=== PATIENT | male | born 1945 | race African-American/Black ===

== ENCOUNTER 2017-01-12 09:31 | Inpatient (IN) | payer MEDICARE, OTHER ==
[~2017-01-12] VITALS: Ht 185.4 cm; Wt 127.6 kg
[2017-01-12 09:58] LABS: BASO # 0.1 x10^3/uL (0.0-0.2); BASO % 1 % (0-3); EOS % 4 % (0-3); HEMOGLOBIN 13.5 g/dL (13.0-17.5); LYMPH # 2.5 x10^3/uL (1.0-4.8); LYMPH % 23 % (24-48); MEAN CORPUSCULAR HEMOGLOBIN 25 pg (25-35); MEAN CORPUSCULAR HGB CONC 33 g/dL (31-37); MEAN CORPUSCULAR VOLUME 77 fL (79-100); MONO % 8 % (0-9); NEUT % 64 % (31-73); PLATELET COUNT 263 x10^3/uL (140-400); RED BLOOD COUNT 5.33 x10^6/uL (4.30-5.70); RED CELL DISTRIBUTION WIDTH 15.8 % (11.5-14.5)
[2017-01-12] MEDS ORDERED: IPRATRPIUM/ALBUTEROL 0.5/2.5MG 3 ML NEBU. NEB ONE (10:15)
--- NOTE | 2017-01-12 10:17 | RAD ---
Portable chest, 01/12/2017: History: Shortness of breath Comparison is made to a study from 07/09/2010. The patient is rotated to the right. The heart appears to be within normal limits in size. The pulmonary vascularity is normal. No pulmonary infiltrates are seen. There is no evidence of pleural fluid. Moderate spurring is present in the spine. IMPRESSION: No acute cardiopulmonary abnormality is detected.
[2017-01-12 10:21] LABS: CALCIUM 9.6 mg/dL (8.5-10.1); CREATININE 1.4 mg/dL (0.7-1.3); GFR 49.7; POTASSIUM 3.7 mmol/L (3.5-5.1)
[2017-01-12 10:27] LABS: ALBUMIN 3.6 g/dL (3.4-5.0); ALBUMIN/GLOBULIN RATIO 0.7 (1.0-1.7); TOTAL BILIRUBIN 0.4 mg/dL (0.2-1.0); TOTAL PROTEIN 9.1 g/dL (6.4-8.2)
--- NOTE | 2017-01-12 10:28 | PHYS DOC ---
Past Medical History Past Medical History: CHF, Hypertension Past Surgical History: No Surgical History Additional Information: quit "forty years ago" Alcohol Use: None Drug Use: None Adult General Chief Complaint Chief Complaint: SHORTNESS OF BREATH HPI HPI 71-year-old male presenting to the emergency department today with shortness of breath over the past 2 weeks. He also reports swelling in his legs bilaterally and orthopnea. Location lungs. Duration intermittent. Worse with exertion. Improved with rest. He describes having intermittent chest pressure over the past few weeks as well. Review of systems is negative for nausea vomiting diaphoresis fevers chills cough. All other review of systems is negative unless otherwise noted in history of present illness. Review of Systems Review of Systems SEE ABOVE. Current Medications Current Medications Current Medications Medications (Trade) Dose Ordered Sig/Aleksandra Start Time Stop Time Status Last Admin Dose Admin Albuterol/ Ipratropium (Duoneb) 3 ml 1X ONCE 01/12/17 10:15 01/12/17 10:16 DC 01/12/17 10:29 3 ML Furosemide (Lasix) 40 mg 1X ONCE 01/12/17 10:30 01/12/17 10:31 DC 01/12/17 10:56 40 MG Labetalol HCl (Normodyne) 10 mg 1X ONCE 01/12/17 10:30 01/12/17 10:31 DC Allergies Allergies Allergies Coded Allergies Type Severity Reaction Last Updated Verified lisinopril Allergy Severe swelling 01/12/17 Yes Physical Exam Physical Exam Constitutional: Well developed, well nourished, patient has mild increased work of breathing (nursing note states "obvious resp distress", pt is satting mid 90s on RA without distress on my exam) non-toxic appearance. HENT: Normocephalic, atraumatic, bilateral external ears normal, oropharynx moist, no oral exudates, nose normal. [] Eyes: PERRLA, EOMI, conjunctiva normal, no discharge. Neck: Normal range of motion, no tenderness, supple, no stridor. [] Cardiovascular: Patient has crackles in the lungs bilaterally. Regular rate and rhythm present. Lungs & Thorax: Crackles present. Abdomen: Bowel sounds normal, soft, no tenderness, no masses, no pulsatile masses. [] Skin: Warm, dry, no erythema, no rash. Back: No tenderness, no CVA tenderness. [] Extremities: No tenderness, no cyanosis, no clubbing, ROM intact, 2+ edema present. Neurologic: Alert and oriented X 3, normal motor function, normal sensory function, no focal deficits noted. Psychologic: Affect normal, judgement normal, mood normal. [] Current Patient Data Vital Signs Vital Signs Date Time Temp Pulse Resp B/P Pulse Ox O2 Delivery O2 Flow Rate FiO2 01/12/17 11:00 89 148/75 01/12/17 10:29 94 Room Air 01/12/17 09:38 97.8 32 97.8 Lab Values Laboratory Tests Test 01/12/17 09:42 White Blood Count 11.0x10^3/uL (4.0-11.0) Red Blood Count 5.33x10^6/uL (4.30-5.70) Hemoglobin 13.5g/dL (13.0-17.5) Hematocrit 41.0% (39.0-53.0) Mean Corpuscular Volume 77fL (79-100) L Mean Corpuscular Hemoglobin 25pg (25-35) Mean Corpuscular Hemoglobin Concent 33g/dL (31-37) Red Cell Distribution Width 15.8% (11.5-14.5) H Platelet Count 263x10^3/uL (140-400) Neutrophils (%) (Auto) 64% (31-73) Lymphocytes (%) (Auto) 23% (24-48) L Monocytes (%) (Auto) 8% (0-9) Eosinophils (%) (Auto) 4% (0-3) H Basophils (%) (Auto) 1% (0-3) Neutrophils # (Auto) 7.0x10^3uL (1.8-7.7) Lymphocytes # (Auto) 2.5x10^3/uL (1.0-4.8) Monocytes # (Auto) 0.9x10^3/uL (0.0-1.1) Eosinophils # (Auto) 0.4x10^3/uL (0.0-0.7) Basophils # (Auto) 0.1x10^3/uL (0.0-0.2) Sodium Level 142mmol/L (136-145) Potassium Level 3.7mmol/L (3.5-5.1) Chloride Level 103mmol/L (98-107) Carbon Dioxide Level 25mmol/L (21-32) Anion Gap 14 (6-14) Blood Urea Nitrogen 22mg/dL (8-26) Creatinine 1.4mg/dL (0.7-1.3) H Estimated GFR (Cockcroft-Gault) 49.7 BUN/Creatinine Ratio 16 (6-20) Glucose Level 197mg/dL (70-99) H Lactic Acid Level 3.8mmol/L (0.4-2.0) H Calcium Level 9.6mg/dL (8.5-10.1) Total Bilirubin 0.4mg/dL (0.2-1.0) Aspartate Amino Transferase (AST) 51U/L (15-37) H Alanine Aminotransferase (ALT) 45U/L (16-63) Alkaline Phosphatase 120U/L (46-116) H Troponin I Quantitative 0.033ng/mL (0.000-0.055) YC-Bpg-E-Type Natriuretic Peptide 2219pg/mL (0-124) H Total Protein 9.1g/dL (6.4-8.2) H Albumin 3.6g/dL (3.4-5.0) Albumin/Globulin Ratio 0.7 (1.0-1.7) L Lipase 238U/L (73-393) Laboratory Tests 01/12/17 09:42 Laboratory Tests 01/12/17 09:42 EKG EKG EKG shows sinus rhythm with a regular rate. [place] is leftward. Intervals show mildly prolonged QRS. ST segments show appropriate repolarization. [] Radiology/Procedures Radiology/Procedures [] Course & Med Decision Making Course & Med Decision Making Pertinent Labs and Imaging studies reviewed. (See chart for details) [] 71-year-old male presenting to the emergency department today with worsening shortness of breath over the past 2 weeks. Patient is tachycardic and tachypneic saturating in the mid 90s on room air with hypertension present. Pertinent physical exam findings show crackles with edema on the legs. Patient appears volume overloaded. Lasix given in the emergency department along with small dose of labetalol for his hypertension. Physical exam suggestive of CHF exacerbation. Chest x-ray read as similar to previous however on my review appears to have mild pulmonary edema. Blood work obtained which showed elevation in proBNP. The patient was subsequently admitted to our hospital for further evaluation workup and care. Cardiology consultation placed. Dragon Disclaimer Dragon Disclaimer This electronic medical record was generated, in whole or in part, using a voice recognition dictation system. Departure Departure Impression: Primary Impression: Shortness of breath Disposition: ADMITTED INPATIENT Admitting Physician: Fatoumata Davis Condition: IMPROVED Referrals: FATOUMATA DAVIS MD (PCP) PAO AREVALO MD Jan 12, 2017 10:28
[2017-01-12] MEDS: IPRATRPIUM/ALBUTEROL 0.5/2.5MG 3 ML NEBU. NEB SCH ×3 (10:29→19:32)
[2017-01-12] MEDS ORDERED: FUROSEMIDE 40 MG/4 ML VIAL IVP ONE (10:30)
[2017-01-12] MEDS ORDERED: LABETALOL 20 MG/4 ML DISP.SYRIN. IVP ONE (10:30)
--- NOTE | 2017-01-12 10:49 | EKG ---
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 MISSING LEAD V4. PREMATURE VENTRICULAR CONTRACTION. Electronically Signed On 01-13-2017 21:15:29 CDT by Debra Mistry
[2017-01-12] MEDS ORDERED: ONDANSETRON PF 4 MG/2 ML VIAL. IV PRN (11:15)
[2017-01-12] MEDS ORDERED: MORPHINE SULFATE 2 MG/ML DISP.SYRIN. IV PRN (11:15)
[2017-01-12 12:00] VITALS: BP 154/98
--- NOTE | 2017-01-12 12:36 | ACF ---
Admission Forms Criteria TELEMETRY CARE Telemetry Admission Guidelines (Place 'X' for any and all applicable criteria): Admission to telemetry [A] may be indicated for ANY ONE of the following(1)(2)(3 )(4)(5): [X]I. Cardiac disease, including ANY ONE of the following (9)(10)(11)(12)(13 ): [ ]a) Postacute UT [ ]b) Low-risk patients with ST-segment elevation UT who have undergone successful percutaneous coronary intervention [ ]c) Unstable angina [ ]d) Suspected UT (until it is ruled out) [ ]e) Post cardiac surgery (first 48 to 72 hours unless complications occur) [X]f) Acute arrhythmias (including significant tachycardia or bradycardia) [B] [ ]g) Firing of an implantable cardioverter defibrillator [C] [ ]h) Suspected pacemaker or implantable cardioverter defibrillator malfunction (10) [ ]i) New administration or adjustment of an antiarrhythmic drug [D ] [ ]j) Child admitted for acute congestive heart failure [ ]j) Long QT syndrome [ ]k) Advanced heart block (eg, second-degree Mobitz type II, third- degree heart block) [ ]l) Acute myocarditis or pericarditis [ ]m) Short-term (ambulatory or inpatient) monitoring after a cardiac procedure as indicated by ANY ONE of the following [E]: [ ]i) Electrophysiologic studies [ ]ii) Percutaneous coronary intervention with stent placement [ ]iii) Pacemaker placement with cardiac conduction defect [ ]iv) Implantable cardiac defibrillator placement [ ]II. Drug overdose or poisoning with substance that causes arrhythmias or QT prolongation (eg, phenothiazines, sympathomimetic agents, cyclic antidepressants, digitalis, antiarrhythmic drugs)(15) [ ]III. Short-term (ambulatory or inpatient) monitoring after therapeutic or diagnostic procedure requiring conscious sedation or anesthesia (eg, endoscopy, elective cardioversion) [ ]IV. Acute cerebrovascular even[F](18) [ ]V. Massive blood transfusion (eg, at least 10 units of packed red blood cells in 24 hours) [ ]. Variceal bleeding after endoscopy, sclerotherapy, or IV vasopressin [ ]VII. Uncorrected electrolyte abnormalities associated with an increased risk of dangerous arrhythmia [G]; examples include [ ]a) Hyperkalemia with attributable ECG changes [ ]b) Potassium greater than 6.5 mmol/L (mEq/L) in a patient without history of chronic renal disease [ ]c) Prolonged QT attributed to hypokalemia, hypomagnesemia, or hypocalcemia [ ]VIII.Unexplained syncope or other neurologic event suspected of being due to arrhythmia due to a finding that increases risk; examples include(19)(20)(21): [ ]a) High-risk ECG findings (eg, bifascicular block, bradycardia, abnormal QT interval, ventricular pre- excitation) [ ]b) History of previous syncope due to arrhythmia [ ]c) Abnormal ventricular function (eg, reduced ejection fraction ) [ ]d) Exertional or supine syncope [ ]e) Concerning syncope characteristics (eg, sudden loss of consciousness without prodrome) [ ]f) Family history of sudden [ ]g) Use of arrhythmogenic medication [ ]h) Suspected cardiac ischemia [ ]i) Known channelopathy (eg, long QT syndrome, Brugada syndrome, or catecholaminergic paroxysmal ventricular tachycardia) [ ]j) Known structural heart disease (eg, hypertrophic cardiomyopathy , severe valvular disease) [ ]k) Palpitations preceding syncope The original [employer] content created by [employer] has been revised. The portions of the content which have been revised are identified through the use of italic text or in bold, and [employer] has neither reviewed nor approved the modified material. All other unmodified content is copyright [employer]. Please see references footnoted in the original [employer] edition 2016 Admission Criteria Met?: Yes JOSE ALFREDO BLOCK Jan 12, 2017 12:36
[2017-01-12 15:00] VITALS: BP 145/87
[2017-01-12] MEDS ORDERED: FUROSEMIDE 20 MG/2 ML VIAL IVP SCH (15:00)
[2017-01-12] MEDS ORDERED: FURO-68 PO (15:36)
[2017-01-12] MEDS ORDERED: AMLO10TA2 PO (15:36)
[2017-01-12] MEDS ORDERED: INSU100I17 SQ (15:36)
[2017-01-12] MEDS ORDERED: POTASSIUM CHLORIDE 20 MEQ TABLET.ER. PO ONE (15:45)
[2017-01-12] MEDS ORDERED: DEXTROSE 50% 25 GM / 50ML DISP.SYRIN. IV PRN (15:45)
--- NOTE | 2017-01-12 16:14 | PDOC2 ---
BERTMANAV BETHEA Lillian [employer] 01/12/17 1614: CARDIAC CONSULT DATE OF CONSULT Date of Consult DATE: 01/12/17 TIME: 15:55 REASON FOR CONSULT Reason for Consult: CHF REFERRING PHYSICIAN Referring Physician: Dr. Andrew Mullins SOURCE Source: Chart review, Patient (and ) HISTORY OF PRESENT ILLNESS HISTORY OF PRESENT ILLNESS 71 year old male admitted through ER with at least 2 week history of progressive dyspnea and LE edema. Has scales but does not weigh himself so weight gain unknown. Report last episode of CHF may have been 7 years ago; usually follow with Dr. Sol; no recent studies. Denies associated chest pain or dizziness but with PND. BP 198/91 POA and denies missed medications. Symptoms improved with 40 mg IV furosemide in ER. BP treated with IV labetolol. Reason for Visit: CHF PAST MEDICAL HISTORY Cardiovascular: CHF, HTN Endocrine: Diabetes PAST SURGICAL HISTORY Past Surgical History: No pertinent history FAMILY HISTORY Family History: Heart Disease (father and sister; sister @ age 74) SOCIAL HISTORY Smoke: No ALCOHOL: none Drugs: None Lives: with Family CURRENT MEDICATIONS CURRENT MEDICATIONS Current Medications Medications (Trade) Dose Ordered Sig/Aleksandra Route PRN Reason Start Time Stop Time Status Last Admin Dose Admin Albuterol/ Ipratropium (Duoneb) 3 ml 1X ONCE NEB 01/12/17 10:15 01/12/17 10:16 DC 01/12/17 10:29 Furosemide (Lasix) 40 mg 1X ONCE IVP 01/12/17 10:30 01/12/17 10:31 DC 01/12/17 10:56 Albuterol/ Ipratropium (Duoneb) 3 ml RTQID NEB 01/12/17 12:00 01/13/17 11:59 01/12/17 15:01 ALLERGIES ALLERGIES: Coded Allergies: lisinopril (Verified Allergy, Severe, swelling, 01/12/17) ROS Review of System 14 point review with pertinent positives in HPI PHYSICAL EXAM General: Alert, Oriented X3, Cooperative HEENT: Atraumatic, PERRLA Lungs: Other (faint scattered basilar crackles posteriorly) Heart: Regular rate, Normal S1, Normal S2, No murmurs, Other (no carotid bruits ) Abdomen: Normal bowel sounds, Soft Extremities: Normal pulses, Other (2-3+ LE edema) Skin: No rashes Neuro: Normal speech Psych/Mental Status: Mental status NL, Mood NL MUSCULOSKELETAL: No deformity VITALS VITALS Vital Signs Date Time Temp Pulse Resp B/P Pulse Ox O2 Delivery O2 Flow Rate FiO2 01/12/17 15:38 Room Air 01/12/17 15:00 97.8 96 20 145/87 94 97.8 LABS Lab: Laboratory Tests Test 01/12/17 09:42 White Blood Count 11.0x10^3/uL (4.0-11.0) Red Blood Count 5.33x10^6/uL (4.30-5.70) Hemoglobin 13.5g/dL (13.0-17.5) Hematocrit 41.0% (39.0-53.0) Mean Corpuscular Volume 77fL (79-100) Mean Corpuscular Hemoglobin 25pg (25-35) Mean Corpuscular Hemoglobin Concent 33g/dL (31-37) Red Cell Distribution Width 15.8% (11.5-14.5) Platelet Count 263x10^3/uL (140-400) Neutrophils (%) (Auto) 64% (31-73) Lymphocytes (%) (Auto) 23% (24-48) Monocytes (%) (Auto) 8% (0-9) Eosinophils (%) (Auto) 4% (0-3) Basophils (%) (Auto) 1% (0-3) Neutrophils # (Auto) 7.0x10^3uL (1.8-7.7) Lymphocytes # (Auto) 2.5x10^3/uL (1.0-4.8) Monocytes # (Auto) 0.9x10^3/uL (0.0-1.1) Eosinophils # (Auto) 0.4x10^3/uL (0.0-0.7) Basophils # (Auto) 0.1x10^3/uL (0.0-0.2) Sodium Level 142mmol/L (136-145) Potassium Level 3.7mmol/L (3.5-5.1) Chloride Level 103mmol/L (98-107) Carbon Dioxide Level 25mmol/L (21-32) Anion Gap 14 (6-14) Blood Urea Nitrogen 22mg/dL (8-26) Creatinine 1.4mg/dL (0.7-1.3) Estimated GFR (Cockcroft-Gault) 49.7 BUN/Creatinine Ratio 16 (6-20) Glucose Level 197mg/dL (70-99) Lactic Acid Level 3.8mmol/L (0.4-2.0) Calcium Level 9.6mg/dL (8.5-10.1) Total Bilirubin 0.4mg/dL (0.2-1.0) Aspartate Amino Transf (AST/SGOT) 51U/L (15-37) Alanine Aminotransferase (ALT/SGPT) 45U/L (16-63) Alkaline Phosphatase 120U/L (46-116) Troponin I Quantitative 0.033ng/mL (0.000-0.055) FL-Lwu-G-Type Natriuretic Peptide 2219pg/mL (0-124) Total Protein 9.1g/dL (6.4-8.2) Albumin 3.6g/dL (3.4-5.0) Albumin/Globulin Ratio 0.7 (1.0-1.7) Lipase 238U/L (73-393) Thyroid Stimulating Hormone (TSH) 1.290uIU/mL (0.358-3.74) IMAGES IMAGES CXR: Comparison is made to a study from 07/09/2010. The patient is rotated to the right. The heart appears to be within normal limits in size. The pulmonary vascularity is normal. No pulmonary infiltrates are seen. There is no evidence of pleural fluid. Moderate spurring is present in the spine. IMPRESSION: No acute cardiopulmonary abnormality is detected. EKG EKG SR with LVH ASSESSMENT/PLAN ASSESSMENT/PLAN 1. acute CHF, presumed diastolic NT-proBNP 2219 significant improvement in symptoms after IV furosemide - would repeat IV X 1 in a.m. and then convert to oral meds echo to evaluate LV function strict I & O; daily weight; sodium restriction in diet and fluid restriction records from Dr. Wood consider stopping CCB as this may be contributing to LE edema 2. malignant HTN control with meds 3. elevated lactic acid level ?; not treated in ER check UA with reflex to C & S 4. DM, II per primary service 5. morbid obesity Problems: ÓSCAR ZULUAGA MD 01/12/172123: CARDIAC CONSULT ALLERGIES ALLERGIES: Coded Allergies: lisinopril (Verified Allergy, Severe, swelling, 01/12/17) ASSESSMENT/PLAN ASSESSMENT/PLAN Pt. seen and examined. Agree with above CANDY DIPPER note. Mr. Romano is a 71 y.o man presenting with acute on chronic heart failure symptoms. On exam he has mild lower ext edema. heart tones regular echo with severe LV dysfunction. discussed r/b/a to cath. Will proceed tomorrow as pt. agreeable. Thanks for consult. Further recs pending cath. Problems: MANAV RICHARD APRN Jan 12, 2017 16:14 ÓSCAR ZULUAGA MD Jan 12, 2017 21:24
[2017-01-12] MEDS: AMLODIPINE BESYLATE 10 MG TABLET PO SCH (16:30)
[2017-01-12] MEDS ORDERED: FUROSEMIDE 40 MG TABLET PO SCH (16:30)
[2017-01-12] MEDS: INSULIN ASPART 300 UNITS/3 ML INSULN.PEN SQ SCH (17:00)
[2017-01-12] MEDS: ENOXAPARIN 40 MG/0.4 ML DISP.SYRIN. SQ SCH (17:17)
--- NOTE | 2017-01-12 17:48 | CARD ---
APPROVED REPORT EXAM: Two-dimensional and M-mode echocardiogram with Doppler and color Doppler. Other Information Quality : Good INDICATION Congestive Heart Failure 2D DIMENSIONS RVDd3.0 (2.9-3.5cm)Left Atrium(2D)3.9 (1.6-4.0cm) IVSd1.2 (0.7-1.1cm)Aortic Root(2D)2.6 (2.0-3.7cm) LVDd6.0 (3.9-5.9cm)LVOT Diameter2.2 (1.8-2.4cm) PWd1.2 (0.7-1.1cm)LVDs5.4 (2.5-4.0cm) FS (%) 10.4 %SV40.0 ml LVEF(%)22.3 (>50%) Aortic Valve AoV Peak Juan.165.4cm/sAoV VTI28.7cm AO Peak GR.10.9mmHgLVOT Peak Juna.89.6cm/s AO Mean GR.7mmHgAVA (VMAX)2.13cm2 ESTELLA (VTI)2.30cm2 Mitral Valve MV E Xfrjjqqo793.3cm/sMV DECEL LUFL19jd MV A Asjgvnum72.3cm/sE/A Ratio1.6 Tricuspid Valve TR P. Pondjfpx983ia/sRAP WMHWYPMZ0xrNn TR Peak Gr.69iuCjUGSJ48vhKf LEFT VENTRICLE The Left Ventricle is mildly dilated. There is mild concentric left ventricular hypertrophy. Left aneesh tricle systolic function is severely impaired. The Ejection Fraction is 20-25%. There is severe globa l hypokinesis of the left ventricle in a pattern consistent with ischemic cardiomyopathy. Tissue Dopp ler imaging reveals moderate left ventricular diastolic dysfunction. RIGHT VENTRICLE The right ventricle is normal size. The right ventricular systolic function is normal. ATRIA The left atrium size is normal. The right atrium size is normal. The interatrial septum is intact wit h no evidence for an atrial septal defect or patent foramen ovale as noted on 2-D or Doppler imaging. AORTIC VALVE The aortic valve is calcified but opens well. Doppler and Color Flow revealed no significant aortic r egurgitation. There is no significant aortic valvular stenosis. MITRAL VALVE The mitral valve is calcified but opens well. There is no evidence of mitral valve prolapse. There is no mitral valve stenosis. Doppler and Color-flow revealed mild mitral regurgitation. TRICUSPID VALVE The tricuspid valve is normal in structure and function. Doppler and Color Flow revealed mild tricusp id regurgitation. There is moderate pulmonary hypertension. The PA pressure was estimated at 46 mmHg. There is no tricuspid valve stenosis. PULMONIC VALVE Doppler and Color Flow revealed no pulmonic valvular regurgitation. There is no pulmonic valvular pura nosis. GREAT VESSELS The aortic root is normal in size. The ascending aorta is normal in size. The IVC is dilated and michael apses >50% with inspiration. PERICARDIAL EFFUSION There is no evidence of significant pericardial effusion. Critical Notification Critical Value: No <Conclusion> Left ventricle systolic function is severely impaired. The Ejection Fraction is 20-25%. There is severe global hypokinesis of the left ventricle in a pattern consistent with ischemic cardio myopathy. Tissue Doppler imaging reveals moderate left ventricular diastolic dysfunction. Doppler and Color Flow revealed mild tricuspid regurgitation. There is moderate pulmonary hypertensio n. The PA pressure was estimated at 46 mmHg.
[2017-01-12 19:00] VITALS: BP 140/87
[2017-01-12 19:59] LABS: BILIRUBIN,URINE NEGATIVE (NEG); GLUCOSE,URINE NEGATIVE (NEG); NITRITE,URINE NEGATIVE (NEG); PH,URINE 5.5; PROTEIN,URINE 100 mg/dL (NEG-TRACE); UROBILINOGEN,URINE 0.2 mg/dL (0.2 mg/dL)
[2017-01-12 20:09] LABS: BACTERIA,URINE 0 /HPF (0-FEW); RBC,URINE 0 /HPF (0-2); SQUAMOUS EPITHELIAL CELL,UR FEW /LPF
[2017-01-12] MEDS: METOPROLOL TART IMMED RELEASE 25 MG TABLET PO SCH (21:50)
[2017-01-12 23:00] VITALS: BP 137/84
[2017-01-13] VITALS (18 sets, daily range): BP systolic 109–169; BP diastolic 66–106
[2017-01-13 04:42] LABS: BASO # 0.1 x10^3/uL (0.0-0.2); BASO % 1 % (0-3); EOS % 4 % (0-3); HEMATOCRIT 36.9 % (39.0-53.0); HEMOGLOBIN 11.8 g/dL (13.0-17.5); LYMPH # 1.7 x10^3/uL (1.0-4.8); LYMPH % 18 % (24-48); MEAN CORPUSCULAR HEMOGLOBIN 25 pg (25-35); MEAN CORPUSCULAR HGB CONC 32 g/dL (31-37); MEAN CORPUSCULAR VOLUME 78 fL (79-100); MONO % 10 % (0-9); NEUT % 67 % (31-73); PLATELET COUNT 215 x10^3/uL (140-400); RED BLOOD COUNT 4.71 x10^6/uL (4.30-5.70); RED CELL DISTRIBUTION WIDTH 15.6 % (11.5-14.5); WHITE BLOOD COUNT 9.2 x10^3/uL (4.0-11.0)
[2017-01-13 04:53] LABS: CALCIUM 9.1 mg/dL (8.5-10.1); CREATININE 1.4 mg/dL (0.7-1.3); GFR 60.1; POTASSIUM 3.9 mmol/L (3.5-5.1)
[2017-01-13 04:57] LABS: CHOLESTEROL/HDL RATIO 2.5; MAGNESIUM 2.1 mg/dL (1.8-2.4)
[2017-01-13 06:33] LABS: PLT ESTIMATE ADEQUATE (ADEQUATE)
[2017-01-13] MEDS: IPRATRPIUM/ALBUTEROL 0.5/2.5MG 3 ML NEBU. NEB SCH ×2 (07:14→11:55)
[2017-01-13] MEDS: POTASSIUM CHLORIDE 20 MEQ TABLET.ER. PO SCH (08:00)
[2017-01-13] MEDS: INSULIN ASPART 300 UNITS/3 ML INSULN.PEN SQ SCH ×3 (08:00→17:00)
[2017-01-13] MEDS: METOPROLOL TART IMMED RELEASE 25 MG TABLET PO SCH ×2 (08:35→22:27)
[2017-01-13] MEDS: AMLODIPINE BESYLATE 10 MG TABLET PO SCH (08:36)
[2017-01-13] MEDS: FUROSEMIDE 20 MG/2 ML VIAL IVP SCH (08:53)
[2017-01-13] MEDS ORDERED: LIDOCAINE 2% 20 ML VIAL. ONE (11:44)
[2017-01-13] MEDS ORDERED: IODIXANOL 320 MG/ML 100 ML VIAL. ONE ×2 (11:45→13:40)
--- NOTE | 2017-01-13 12:34 | PDOC ---
Provider Note Provider Note Pt seen.H&P dictated. #[id number] FATOUMATA CARTER MD Jan 13, 2017 12:34
[2017-01-13] MEDS ORDERED: HEPARIN for IV BOLUS 10,000 UNIT/10 ML VIAL. ONE (12:52)
[2017-01-13] MEDS ORDERED: FENTANYL PF 100 MCG/2 ML VIAL. ONE (12:52)
[2017-01-13] MEDS ORDERED: NITROGLYCERIN 200 MCG/2 ML SYRINGE FOR CATH/VASC LAB. ONE (12:52)
[2017-01-13] MEDS ORDERED: VERAPAMIL 5 MG/2 ML VIAL. ONE (12:52)
[2017-01-13] MEDS ORDERED: MIDAZOLAM HCL 2 MG/2 ML VIAL. ONE (12:53)
[2017-01-13] MEDS ORDERED: MIDAZOLAM HCL 2 MG/2 ML VIAL. IV ONE (13:30)
[2017-01-13] MEDS ORDERED: LIDOCAINE 2% 20 ML VIAL. IJ ONE (13:30)
[2017-01-13] MEDS ORDERED: IODIXANOL 320 MG/ML 100 ML VIAL. IART ONE (13:30)
[2017-01-13] MEDS ORDERED: FENTANYL PF 100 MCG/2 ML VIAL. IV ONE (13:30)
[2017-01-13] MEDS ORDERED: NITROGLYCERIN 200 MCG/2 ML SYRINGE FOR CATH/VASC LAB. IART ONE (14:15)
[2017-01-13] MEDS ORDERED: VERAPAMIL 5 MG/2 ML VIAL. IART ONE (14:15)
[2017-01-13] MEDS ORDERED: HEPARIN for IV BOLUS 10,000 UNIT/10 ML VIAL. IART ONE (14:15)
[2017-01-13] MEDS: ENOXAPARIN 40 MG/0.4 ML DISP.SYRIN. SQ SCH (15:44)
[2017-01-13] MEDS: ISOSORBIDE MONONITRATE ER 30 MG TAB.ER.24H PO SCH (18:30)
--- NOTE | 2017-01-13 19:04 | CARD ---
APPROVED REPORT Procedure(s) performed: Left Heart Catheterization 190mL Visipaque 10.9 mins Fluoro 935.12 mGy [id number] HISTORY The patient is a 71 year-old male with a history of : previous CHF, hypertension, dyslipidemia. INDICATION The indication(s) include : unstable angina , dyspnea. PROCEDURE NARRATIVE The patient was brought electively to the cardiac catheterization lab. A timeout was performed confi rming the patient's name, date of , procedure, and site of procedure. All necessary personnel w ere wearing the appropriate protective equipment and radiation monitor devices. After explaining the risks and benefits of the procedure and alternatives, informed consent was obtained. (See nursing no manda for medications administered). The right wrist was sterilely prepped and draped in the usual fas hion. The right wrist was infiltrated with 1 mL of 2% lidocaine for subcutaneous anesthesia. A 6 Fr ench Terumo glide sheath was inserted into the right radial artery without difficulty. Right and lef t coronary angiography was performed using a 6Fr TIG 4.0 catheter. The RCA could not be selectively engaged due to likely anamolous origin. Due to radial approach and anatomy, selective engagement was not successful despite use of an AL1, AR, MPA, Karan and JR4 catheters. Left ventricular end diasto lic pressure was obtained with a pigtail catheter and pullback was performed after left ventriculogra phy. All catheter exchanges and advancements were performed over a guidewire. At case completion e right radial sheath was removed and a Terumo radial band was applied with 13 ml of air. The patien t tolerated the procedure well and there were no immediate complications. HEMODYNAMICS: LVEDP 40 mm Hg No gradient on LV to aortic pullback. LEFT VENTRICULOGRAM: Deferred due to known EF of 25% and contrast use for coronary angiography. CORONARY ANGIOGRAPHY: LM is a large caliber vessel with normal angiographic appearance. LAD is a large caliber vessel with normal angiographic appearance. Ramus is a moderate caliber vessel with normal angiographic apeparance. LCx is a moderate caliber non-dominant vessel with normal angiographic appearance. OM1 is a moderate caliber vessel with normal angiographic appearance. RCA is a moderate caliber dominant vessel without any critical disease on non-selective images. Conclusion 1. Severe left ventricular pressure overload 2. Normal angiographic appearance of the coronary arteries. Recommendations Aggressive Medical Therapy
--- NOTE | 2017-01-13 20:44 | HP ---
ADMIT DATE: 01/12/2017 LOCATION: [facility]. REASON FOR ADMISSION TO THE HOSPITAL: Shortness of breath, swelling in the legs, congestive heart failure. HISTORY OF PRESENT ILLNESS: The patient is a 71-year-old male patient known to me, has a history of hypertension, hyperlipidemia, diabetes, and had been to Cardiology in the past. He is noncompliant with instructions to follow in the office. He was having shortness of breath for the last 2 days, get progressively worse. Also noticed swelling in the legs, came to the Emergency Room and found to be in congestive heart failure. His BNP was elevated. Chest x-ray CHF, 2+ edema in the legs. The patient was admitted to the hospital, seen by Cardiology. Echocardiogram shows 20-25% ejection fraction. The patient is scheduled for a cardiac cath today. PAST MEDICAL HISTORY: As mentioned above has history of diabetes, hypertension, and hyperlipidemia. The patient is not taking any medications now. History of congestive heart failure in the past. PAST SURGICAL HISTORY: Denies any major surgeries. Had history of BPH. ALLERGIES: LISINOPRIL CAUSE ANGIOEDEMA. MEDICATIONS AT HOME: Amlodipine 10 mg, Lasix 40 mg, and insulin sliding scale has been diet controlled. FAMILY HISTORY: Positive for diabetes, hypertension, and heart disease. SOCIAL HISTORY: No history of smoking, alcohol, or drug abuse. REVIEW OF SYSTEMS: Cardiac: Complains of shortness of breath, no chest pains, swelling in lower extremities, fatigue. Rest of the 14-system was reviewed and negative. PHYSICAL EXAMINATION: GENERAL: The patient is comfortable, not in any distress. His is present at the bedside. VITAL SIGNS: Temperature 97, pulse 131, respirations 32, blood pressure 198/91, and 94% room air. HEENT: Head is atraumatic. Pupils equal. Oral cavity: No congestion. NECK: Supple. Thyroid not enlarged. JVD not elevated. CHEST: Symmetrical. CARDIOVASCULAR: S1, S2 tachycardic. LUNGS: Few crackles at the bases 1/3rd of the base. ABDOMEN: Soft. EXTERNAL GENITALIA: No [place]. RECTAL: Deferred. EXTREMITIES: No calf tenderness. The patient has less edema lower extremities up to the knee. Foot no ulcerations. NEUROLOGIC: Cranial nerves intact. Power 5/5 in all extremities. No focal deficits noted. LABORATORY DATA: Shows a white count of 11, hemoglobin 13, platelets 263. Electrolytes showed sodium 142, potassium 3.7, chloride 103, bicarb 25, BUN 22, creatinine 1.4, glucose 197. LFTs were normal. BNP 2219. Lactic acid 3.8, slightly high. TSH 1.2. Troponin was negative, magnesium 2.1. Cholesterol is 149, LDL 80, HDL 60. Urine negative for nitrites and esterase. Chest x-ray no acute abnormality. EKG done, report is pending. FINAL IMPRESSION: 1. Shortness of breath secondary to congestive heart failure, acute. 2. Acute systolic heart failure. 3. Hypertension. 4. Diabetes. 5. Hyperlipidemia. 6. Accelerated hypertension. 7. Mild renal insufficiency. PLAN: At this time, was admit to the hospital, was given IV Lasix, seen by Cardiology. The patient is started on beta deb and continue Lipitor and aspirin. The patient is scheduled for cardiac cath to look at the coronaries. Further recommendation to follow. FATOUMATA CARTER MD DR: MEGAN/roe JOB#: [id number] / [id number] ecc FATOUMATA CARTER MD
[2017-01-13] MEDS: HYDRALAZINE 25 MG TABLET PO SCH (22:26)
[2017-01-13] MEDS ORDERED: FUROSEMIDE 40 MG/4 ML VIAL IVP ONE (23:00)
[2017-01-14 03:00] VITALS: BP 109/71
[2017-01-14 04:17] LABS: CREATININE 1.3 mg/dL (0.7-1.3); GFR 65.5; POTASSIUM 4.1 mmol/L (3.5-5.1)
[2017-01-14 07:00] VITALS: BP 116/85
[2017-01-14] MEDS: INSULIN ASPART 300 UNITS/3 ML INSULN.PEN SQ SCH ×2 (08:00→11:48)
[2017-01-14] MEDS: FUROSEMIDE 20 MG/2 ML VIAL IVP SCH (09:35)
[2017-01-14] MEDS: POTASSIUM CHLORIDE 20 MEQ TABLET.ER. PO SCH (09:35)
[2017-01-14] MEDS: HYDRALAZINE 25 MG TABLET PO SCH (09:36)
[2017-01-14] MEDS: ISOSORBIDE MONONITRATE ER 30 MG TAB.ER.24H PO SCH (09:37)
[2017-01-14] MEDS: METOPROLOL TART IMMED RELEASE 25 MG TABLET PO SCH (09:37)
[2017-01-14] MEDS: AMLODIPINE BESYLATE 10 MG TABLET PO SCH (09:38)
--- NOTE | 2017-01-14 10:19 | PDOC ---
PROGRESS NOTES Subjective Subjective feels better ,anxious to go home Objective Objective Vital Signs Date Time Temp Pulse Resp B/P Pulse Ox O2 Delivery O2 Flow Rate FiO2 01/14/17 09:38 84 116/85 01/14/17 03:00 97.9 20 93 Room Air 97.9 01/13/17 20:00 2.0 Intake and Output 01/14/17 07:00 Intake Total 236 ml Balance 236 ml Intake Oral 236 ml # Voids 3 Physical Exam Abdomen: Normal bowel sounds, Soft Heart: Regular rate, Normal S1, Normal S2, No murmurs, Other (no carotid bruits ) Extremities: Normal pulses, Other (2-3+ LE edema) General: Alert, Oriented X3, Cooperative HEENT: Atraumatic, PERRLA Lungs: Other (faint scattered basilar crackles posteriorly) MUSCULOSKELETAL: No deformity Neuro: Normal speech Psych/Mental Status: Mental status NL, Mood NL Skin: No rashes Diagnosis Problem List Problems Medical Problems: (1) Shortness of breath Status: Acute Assessment Assessment Problems Medical Problems: (1) Shortness of breath Status: Acute FINAL IMPRESSION: 1. Shortness of breath secondary to congestive heart failure, acute. 2. Acute systolic heart failure. 3. Hypertension. 4. Diabetes. 5. Hyperlipidemia. 6. Accelerated hypertension. 7. Mild renal insufficiency. PLAN: cardiac cath no blockages . 25% EJF. want to go home today. medical treatment. At this time, was admit to the hospital, was given IV Lasix, seen by Cardiology. The patient is started on beta deb and continue Lipitor and aspirin. The patient is scheduled for cardiac cath to look at the coronaries. Further recommendation to follow. Problems: Plan Plan of Care Problems Medical Problems: (1) Shortness of breath Status: Acute Comment Review of Relevant I have reviewed the following items james (where applicable) has been applied. Labs Laboratory Tests Test 01/13/17 10:55 01/13/17 20:36 01/14/17 03:20 01/14/17 08:08 Glucose (Fingerstick) 120mg/dL (70-99) 115mg/dL (70-99) 112mg/dL (70-99) Sodium Level 140mmol/L (136-145) Potassium Level 4.1mmol/L (3.5-5.1) Chloride Level 104mmol/L (98-107) Carbon Dioxide Level 26mmol/L (21-32) Anion Gap 10 (6-14) Blood Urea Nitrogen 22mg/dL (8-26) Creatinine 1.3mg/dL (0.7-1.3) Estimated GFR (Cockcroft-Gault) 65.5 Glucose Level 137mg/dL (70-99) Calcium Level 9.0mg/dL (8.5-10.1) Medications Current Medications Fentanyl Citrate (Fentanyl 2ml Vial) 100 mcg 1X ONCE IV Last administered on 13:50; Start 01/13/17 at 13:30; Stop 01/13/17 at 13:31; Status DC Fentanyl Citrate (Fentanyl 2ml Vial) 100 mcg STK-MED ONCE .ROUTE ; Start at 12:52; Stop 01/13/17 at 12:53; Status DC Furosemide (Lasix) 40 mg 1X ONCE IVP Last administered on 01/13/17 22:33; Start 01/13/17 at 23:00; Stop 01/13/17 at 23:01; Status DC Heparin Sodium (Porcine) 2,500 unit 1X ONCE IART Last administered on 13:58; Start 01/13/17 at 14:15; Stop 01/13/17 at 14:16; Status DC Heparin Sodium (Porcine) 10,000 unit STK-MED ONCE .ROUTE ; Start 01/13/17 at 12: 52; Stop 01/13/17 at 12:53; Status DC Heparin Sodium/ Sodium Chloride 1,000 ml @ As Directed STK-MED ONCE .ROUTE ; Start 01/13/17 at 11:44; Stop 01/13/17 at 11:45; Status DC Heparin Sodium/ Sodium Chloride 1,000 unit 1X ONCE IART Last administered on 13:51; Start 01/13/17 at 13:45; Stop 01/13/17 at 13:46; Status DC Hydralazine HCl (Apresoline) 25 mg BID PO Last administered on 01/14/17 09:36 ; Start 01/13/17 at 21:00 Iodixanol (Visipaque 320) 100 ml 1X ONCE IART Last administered on 01/13/17 13:50; Start 01/13/17 at 13:30; Stop 01/13/17 at 13:31; Status DC Iodixanol (Visipaque 320) 100 ml STK-MED ONCE .ROUTE ; Start 01/13/17 at 11:45; Stop 01/13/17 at 11:46; Status DC Iodixanol (Visipaque 320) 100 ml STK-MED ONCE .ROUTE ; Start 01/13/17 at 13:40; Stop 01/13/17 at 13:41; Status DC Isosorbide Mononitrate (Imdur) 30 mg DAILY PO Last administered on 01/14/17 09 :37; Start 01/13/17 at 17:30 Lidocaine HCl 20 ml 1X ONCE IJ Last administered on 01/13/17 13:51; Start at 13:30; Stop 01/13/17 at 13:31; Status DC Lidocaine HCl 20 ml STK-MED ONCE .ROUTE ; Start 01/13/17 at 11:44; Stop at 11:45; Status DC Midazolam HCl (Versed) 2 mg 1X ONCE IV Last administered on 01/13/17 13:51; Start 01/13/17 at 13:30; Stop 01/13/17 at 13:31; Status DC Midazolam HCl (Versed) 2 mg STK-MED ONCE .ROUTE ; Start 01/13/17 at 12:53; Stop 01/13/17 at 12:54; Status DC Nitroglycerin (Nitroglycerin) 200 mcg 1X ONCE IART Last administered on 13:57; Start 01/13/17 at 14:15; Stop 01/13/17 at 14:16; Status DC Nitroglycerin (Nitroglycerin) 200 mcg STK-MED ONCE .ROUTE ; Start 01/13/17 at 12 :52; Stop 01/13/17 at 12:53; Status DC Verapamil HCl (Verapamil) 2.5 mg 1X ONCE IART Last administered on 01/13/17 13:58; Start 01/13/17 at 14:15; Stop 01/13/17 at 14:16; Status DC Verapamil HCl (Verapamil) 5 mg STK-MED ONCE .ROUTE ; Start 01/13/17 at 12:52; Stop 01/13/17 at 12:53; Status DC Vitals/I & O Vital Sign - Last 24 Hours 01/13/17 01/13/17 01/13/17 01/13/17 11:00 11:55 13:47 13:50 Temp 97.5 97.5 Pulse 96 84 Resp 19 16 16 B/P 128/80 Pulse Ox 97 97 93 97 O2 Delivery Room Air Room Air Nasal Cannula Room Air O2 Flow Rate 2.0 01/13/17 01/13/17 01/13/17 01/13/17 13:58 14:06 14:20 14:50 Pulse 78 88 88 88 Resp 20 32 21 B/P 116/97 Pulse Ox 95 95 O2 Delivery Room Air Room Air Room Air 01/13/17 01/13/17 01/13/17 01/13/17 14:55 15:05 15:20 16:30 Temp 98.6 98.6 Pulse 88 88 95 Resp 20 B/P 149/93 Pulse Ox 98 O2 Delivery Room Air Room Air Room Air Room Air 01/13/17 01/13/17 01/13/17 01/13/17 16:45 17:00 17:15 17:45 Temp 98.6 98.6 98.6 98.6 98.6 98.6 98.6 98.6 Pulse 97 89 89 100 Resp 20 20 20 B/P 151/96 133/81 123/72 169/103 Pulse Ox 95 94 91 91 O2 Delivery Room Air Room Air Room Air Room Air 01/13/17 01/13/17 01/13/17 01/13/17 18:00 18:15 18:30 19:15 Temp 98.4 98.6 98.6 98.4 98.6 98.6 Pulse 91 95 96 94 Resp 20 20 20 B/P 109/66 158/106 121/69 129/79 Pulse Ox 97 96 97 O2 Delivery Room Air Room Air Room Air 01/13/17 01/13/17 01/13/17 01/13/17 20:00 22:26 22:27 23:00 Temp 97.5 97.5 Pulse 94 94 90 Resp 20 B/P 129/79 129/79 115/69 Pulse Ox 95 O2 Delivery Room Air Room Air O2 Flow Rate 2.0 01/14/17 01/14/17 01/14/17 01/14/17 03:00 09:36 09:37 09:37 Temp 97.9 97.9 Pulse 82 85 84 84 Resp 20 B/P 109/71 116/85 116/85 116/85 Pulse Ox 93 O2 Delivery Room Air 01/14/17 09:38 Pulse 84 B/P 116/85 Intake and Output 01/13/17 01/13/17 01/14/17 15:00 23:00 07:00 Intake Total 236 ml Balance 236 ml FATOUMATA CARTER MD Jan 14, 2017 10:19
[2017-01-14] MEDS ORDERED: METO25TA4 PO (10:30)
[2017-01-14] MEDS ORDERED: HYDR-2868 PO (10:30)
[2017-01-14] MEDS ORDERED: ISOS30TA4 PO (10:30)
[2017-01-14] MEDS ORDERED: POTA20TA4 PO (10:30)
--- NOTE | 2017-01-14 10:45 | PDOC ---
PROGRESS NOTES Subjective Subjective "ready to go home" no chest pain, dyspnea or palpitations. ambulated without problems. Objective Objective tele - sinus rhythm Vital Signs Date Time Temp Pulse Resp B/P Pulse Ox O2 Delivery O2 Flow Rate FiO2 01/14/17 09:38 84 116/85 01/14/17 03:00 97.9 20 93 Room Air 97.9 01/13/17 20:00 2.0 Intake and Output 01/14/17 07:00 Intake Total 236 ml Balance 236 ml Intake Oral 236 ml # Voids 3 Physical Exam Abdomen: Normal bowel sounds, Soft Heart: Regular rate, Normal S1, Normal S2 Extremities: No cyanosis, Normal pulses General: Alert, Oriented X3, Cooperative, No acute distress Lungs: Clear to auscultation, Normal air movement Neuro: Normal speech, Strength at 5/5 X4 ext Psych/Mental Status: Mental status NL, Mood NL Assessment Assessment Problems Medical Problems: (1) Shortness of breath Status: Acute 1. acute on chronic systolic CHF secondary to NICM- EF 25% no significant coronary disease. continue beta blockers. No ACEI secondary to allergy. Continue NTG/ Hydralazine. change to oral lasix. continue daily weight; sodium restriction in diet and fluid restriction refuses Life Vest. repeat echo in 3 months. consider ICD if EF remains low. 2. malignant HTN controlled with current meds 3. DM, II per primary service Post cath restrictions. OP follow up in 4-6 weeks. Comment Review of Relevant I have reviewed the following items james (where applicable) has been applied. Labs Laboratory Tests Test 01/12/17 17:05 01/12/17 18:45 01/12/17 20:09 01/13/17 03:34 Glucose (Fingerstick) 126mg/dL (70-99) 168mg/dL (70-99) Urine Collection Type Unknown Urine Color Yellow Urine Clarity Clear Urine pH 5.5 Urine Specific [place] 1.020 Urine Protein 100mg/dL (NEG-TRACE) Urine Glucose (UA) Negativemg/dL (NEG) Urine Ketones (Stick) Negativemg/dL (NEG) Urine Blood Negative (NEG) Urine Nitrite Negative (NEG) Urine Bilirubin Negative (NEG) Urine Urobilinogen Dipstick 0.2mg/dL (0.2 mg/dL) Urine Leukocyte Esterase Negative (NEG) Urine RBC 0/HPF (0-2) Urine WBC 1-4/HPF (0-4) Urine Squamous Epithelial Cells Few/LPF Urine Bacteria 0/HPF (0-FEW) Urine Mucus Slight/LPF White Blood Count 9.2x10^3/uL (4.0-11.0) Red Blood Count 4.71x10^6/uL (4.30-5.70) Hemoglobin 11.8g/dL (13.0-17.5) Hematocrit 36.9% (39.0-53.0) Mean Corpuscular Volume 78fL (79-100) Mean Corpuscular Hemoglobin 25pg (25-35) Mean Corpuscular Hemoglobin Concent 32g/dL (31-37) Red Cell Distribution Width 15.6% (11.5-14.5) Platelet Count 215x10^3/uL (140-400) Neutrophils (%) (Auto) 67% (31-73) Lymphocytes (%) (Auto) 18% (24-48) Monocytes (%) (Auto) 10% (0-9) Eosinophils (%) (Auto) 4% (0-3) Basophils (%) (Auto) 1% (0-3) Neutrophils # (Auto) 6.1x10^3uL (1.8-7.7) Lymphocytes # (Auto) 1.7x10^3/uL (1.0-4.8) Monocytes # (Auto) 0.9x10^3/uL (0.0-1.1) Eosinophils # (Auto) 0.3x10^3/uL (0.0-0.7) Basophils # (Auto) 0.1x10^3/uL (0.0-0.2) Platelet Estimate Adequate (ADEQUATE) Giant Platelets Present Sodium Level 141mmol/L (136-145) Potassium Level 3.9mmol/L (3.5-5.1) Chloride Level 103mmol/L (98-107) Carbon Dioxide Level 27mmol/L (21-32) Anion Gap 11 (6-14) Blood Urea Nitrogen 22mg/dL (8-26) Creatinine 1.4mg/dL (0.7-1.3) Estimated GFR (Cockcroft-Gault) 60.1 Glucose Level 116mg/dL (70-99) Hemoglobin A1c 6.6% (4.8-5.6) Calcium Level 9.1mg/dL (8.5-10.1) Magnesium Level 2.1mg/dL (1.8-2.4) Triglycerides Level 47mg/dL (0-150) Cholesterol Level 149mg/dL (0-200) LDL Cholesterol, Calculated 80mg/dL (0-100) VLDL Cholesterol, Calculated 9mg/dL (0-40) HDL Cholesterol 60mg/dL (40-60) Cholesterol/HDL Ratio 2.5 Test 01/13/17 07:50 01/13/17 10:55 01/13/17 20:36 01/14/17 03:20 Glucose (Fingerstick) 150mg/dL (70-99) 120mg/dL (70-99) 115mg/dL (70-99) Sodium Level 140mmol/L (136-145) Potassium Level 4.1mmol/L (3.5-5.1) Chloride Level 104mmol/L (98-107) Carbon Dioxide Level 26mmol/L (21-32) Anion Gap 10 (6-14) Blood Urea Nitrogen 22mg/dL (8-26) Creatinine 1.3mg/dL (0.7-1.3) Estimated GFR (Cockcroft-Gault) 65.5 Glucose Level 137mg/dL (70-99) Calcium Level 9.0mg/dL (8.5-10.1) Test 01/14/17 08:08 Glucose (Fingerstick) 112mg/dL (70-99) Laboratory Tests Test 01/13/17 10:55 01/13/17 20:36 01/14/17 03:20 01/14/17 08:08 Glucose (Fingerstick) 120mg/dL (70-99) 115mg/dL (70-99) 112mg/dL (70-99) Sodium Level 140mmol/L (136-145) Potassium Level 4.1mmol/L (3.5-5.1) Chloride Level 104mmol/L (98-107) Carbon Dioxide Level 26mmol/L (21-32) Anion Gap 10 (6-14) Blood Urea Nitrogen 22mg/dL (8-26) Creatinine 1.3mg/dL (0.7-1.3) Estimated GFR (Cockcroft-Gault) 65.5 Glucose Level 137mg/dL (70-99) Calcium Level 9.0mg/dL (8.5-10.1) Medications Current Medications Albuterol/ Ipratropium (Duoneb) 3 ml 1X ONCE NEB Last administered on 10:29; Start 01/12/17 at 10:15; Stop 01/12/17 at 10:16; Status DC Furosemide (Lasix) 40 mg 1X ONCE IVP Last administered on 01/12/17 10:56; Start 01/12/17 at 10:30; Stop 01/12/17 at 10:31; Status DC Labetalol HCl (Normodyne) 10 mg 1X ONCE IVP ; Start 01/12/17 at 10:30; Stop at 10:31; Status DC Ondansetron HCl (Zofran) 4 mg PRN Q8HRS PRN IV NAUSEA/VOMITING; Start 01/12/17 at 11:15; Stop 01/13/17 at 11:14; Status DC Morphine Sulfate 2 mg PRN Q2HR PRN IV PAIN; Start 01/12/17 at 11:15; Stop 01/13 at 11:14; Status DC Albuterol/ Ipratropium (Duoneb) 3 ml RTQID NEB Last administered on 01/13/17 11:55; Start 01/12/17 at 12:00; Stop 01/13/17 at 11:59; Status DC Furosemide (Lasix) 40 mg DAILY IVP ; Start 01/12/17 at 15:00; Stop 01/12/17 at 15:00; Status DC Metoprolol Tartrate (Lopressor) 25 mg BID PO Last administered on 01/14/17 09: 37; Start 01/12/17 at 21:00 Furosemide (Lasix) 40 mg DAILY IVP Last administered on 01/14/17 09:35; Start 01/13/17 at 09:00 Amlodipine Besylate (Norvasc) 10 mg DAILY PO Last administered on 01/14/17 09: 38; Start 01/12/17 at 16:30; Stop 01/14/17 at 10:31; Status DC Furosemide (Lasix) 40 mg BID92 PO ; Start 01/12/17 at 16:30; Status UNV Potassium Chloride (Klor-Con) 40 meq 1X ONCE PO Last administered on 17:17; Start 01/12/17 at 15:45; Stop 01/12/17 at 15:59; Status DC Potassium Chloride (Klor-Con) 20 meq [id number] PO Last administered on 09:35; Start 01/13/17 at 08:00 Insulin Aspart (Novolog) 0-7 UNITS TIDWMEALS SQ ; Start 01/12/17 at 17:00 Dextrose 12.5 gm PRN Q15MIN PRN IV SEE COMMENTS; Start 01/12/17 at 15:45 Enoxaparin Sodium 40 mg 40 mg DAILY16 SQ Last administered on 01/12/17 17:17; Start 01/12/17 at 17:00 Heparin Sodium/ Sodium Chloride 1,000 ml @ As Directed STK-MED ONCE .ROUTE ; Start 01/13/17 at 11:44; Stop 01/13/17 at 11:45; Status DC Lidocaine HCl 20 ml STK-MED ONCE .ROUTE ; Start 01/13/17 at 11:44; Stop at 11:45; Status DC Iodixanol (Visipaque 320) 100 ml STK-MED ONCE .ROUTE ; Start 01/13/17 at 11:45; Stop 01/13/17 at 11:46; Status DC Nitroglycerin (Nitroglycerin) 200 mcg STK-MED ONCE .ROUTE ; Start 01/13/17 at 12 :52; Stop 01/13/17 at 12:53; Status DC Verapamil HCl (Verapamil) 5 mg STK-MED ONCE .ROUTE ; Start 01/13/17 at 12:52; Stop 01/13/17 at 12:53; Status DC Heparin Sodium (Porcine) 10,000 unit STK-MED ONCE .ROUTE ; Start 01/13/17 at 12: 52; Stop 01/13/17 at 12:53; Status DC Fentanyl Citrate (Fentanyl 2ml Vial) 100 mcg STK-MED ONCE .ROUTE ; Start at 12:52; Stop 01/13/17 at 12:53; Status DC Midazolam HCl (Versed) 2 mg STK-MED ONCE .ROUTE ; Start 01/13/17 at 12:53; Stop 01/13/17 at 12:54; Status DC Heparin Sodium/ Sodium Chloride 1,000 unit 1X ONCE IART Last administered on 13:51; Start 01/13/17 at 13:45; Stop 01/13/17 at 13:46; Status DC Midazolam HCl (Versed) 2 mg 1X ONCE IV Last administered on 01/13/17 13:51; Start 01/13/17 at 13:30; Stop 01/13/17 at 13:31; Status DC Fentanyl Citrate (Fentanyl 2ml Vial) 100 mcg 1X ONCE IV Last administered on 13:50; Start 01/13/17 at 13:30; Stop 01/13/17 at 13:31; Status DC Iodixanol (Visipaque 320) 100 ml 1X ONCE IART Last administered on 01/13/17 13:50; Start 01/13/17 at 13:30; Stop 01/13/17 at 13:31; Status DC Lidocaine HCl 20 ml 1X ONCE IJ Last administered on 01/13/17 13:51; Start at 13:30; Stop 01/13/17 at 13:31; Status DC Iodixanol (Visipaque 320) 100 ml STK-MED ONCE .ROUTE ; Start 01/13/17 at 13:40; Stop 01/13/17 at 13:41; Status DC Nitroglycerin (Nitroglycerin) 200 mcg 1X ONCE IART Last administered on 13:57; Start 01/13/17 at 14:15; Stop 01/13/17 at 14:16; Status DC Verapamil HCl (Verapamil) 2.5 mg 1X ONCE IART Last administered on 01/13/17 13:58; Start 01/13/17 at 14:15; Stop 01/13/17 at 14:16; Status DC Heparin Sodium (Porcine) 2,500 unit 1X ONCE IART Last administered on 13:58; Start 01/13/17 at 14:15; Stop 01/13/17 at 14:16; Status DC Isosorbide Mononitrate (Imdur) 30 mg DAILY PO Last administered on 01/14/17 09 :37; Start 01/13/17 at 17:30 Hydralazine HCl (Apresoline) 25 mg BID PO Last administered on 3/16/17at 09:36 ; Start 01/13/17 at 21:00 Furosemide (Lasix) 40 mg 1X ONCE IVP Last administered on 01/13/17t 22:33; Start 01/13/17 at 23:00; Stop 01/13/17 at 23:01; Status DC Active Scripts Active Reported Novolog Flexpen (Insulin Aspart) 100 Unit/1 Ml Insuln.pen 1 Unit SQ TIDACHC Amlodipine Besylate 10 Mg Tablet 10 Mg PO DAILY Lasix (Furosemide) 40 Mg Tablet 40 Mg PO BID Vitals/I & O Vital Sign - Last 24 Hours 01/13/17 01/13/17 01/13/17 01/13/17 11:00 11:55 13:47 13:50 Temp 97.5 97.5 Pulse 96 84 Resp 19 16 16 B/P 128/80 Pulse Ox 97 97 93 97 O2 Delivery Room Air Room Air Nasal Cannula Room Air O2 Flow Rate 2.0 01/13/17 01/13/17 01/13/17 01/13/17 13:58 14:06 14:20 14:50 Pulse 78 88 88 88 Resp 20 32 21 B/P 116/97 Pulse Ox 95 95 O2 Delivery Room Air Room Air Room Air 01/13/17 01/13/17 01/13/17 01/13/17 14:55 15:05 15:20 16:30 Temp 98.6 98.6 Pulse 88 88 95 Resp 20 25 20 B/P 149/93 Pulse Ox 98 O2 Delivery Room Air Room Air Room Air Room Air 01/13/17 01/13/17 01/13/17 01/13/17 16:45 17:00 17:15 17:45 Temp 98.6 98.6 98.6 98.6 98.6 98.6 98.6 98.6 Pulse 97 89 89 100 Resp 20 20 20 20 B/P 151/96 133/81 123/72 169/103 Pulse Ox 95 94 91 91 O2 Delivery Room Air Room Air Room Air Room Air 01/13/17 01/13/17 01/13/17 01/13/17 18:00 18:15 18:30 19:15 Temp 98.4 98.6 98.6 98.4 98.6 98.6 Pulse 91 95 96 94 Resp 20 20 20 B/P 109/66 158/106 121/69 129/79 Pulse Ox 97 96 97 O2 Delivery Room Air Room Air Room Air 01/13/17 01/13/17 01/13/17 01/13/17 20:00 22:26 22:27 23:00 Temp 97.5 97.5 Pulse 94 94 90 Resp 20 B/P 129/79 129/79 115/69 Pulse Ox 95 O2 Delivery Room Air Room Air O2 Flow Rate 2.0 01/14/17 01/14/17 01/14/17 01/14/17 03:00 09:36 09:37 09:37 Temp 97.9 97.9 Pulse 82 85 84 84 Resp 20 B/P 109/71 116/85 116/85 116/85 Pulse Ox 93 O2 Delivery Room Air 01/14/17 09:38 Pulse 84 B/P 116/85 Intake and Output 01/13/17 01/13/17 01/14/17 15:00 23:00 07:00 Intake Total 236 ml Balance 236 ml KARELY GARCÍA APRN Jan 14, 2017 10:45
[2017-01-14 11:00] VITALS: BP 111/71
[2017-01-14 15:08] VITALS: BP 113/71
--- NOTE | 2017-01-20 22:08 | PDOC ---
Provider Note Provider Note Discharge summary dictated. #[id number] FATOUMATA CARTER MD Jan 20, 2017 22:08
--- NOTE | 2017-01-21 00:15 | DS ---
DATE OF DISCHARGE: 01/14/2017 REASON FOR ADMISSION TO THE HOSPITAL: Shortness of breath, congestive heart failure, acute on chronic heart failure. CONSULTATIONS: Dr. Dukes. PROCEDURES DONE: 1. Echocardiogram. 2. Cardiac catheterization. COMPLICATIONS: None. HOSPITAL COURSE: The patient is a 71-year-old male with history of hypertension, diabetes with chronic heart failure. He was not taking his medication and was having shortness of breath, came in with congestive heart failure. Echocardiogram shows ejection fraction of 25% easily, around 40% in the past at Cardiology. The patient was taken for cardiac catheterization which shows normal coronaries, severely decreased left ventricular function 25% and the patient was put on medications for heart failure and discharged home to see how his condition improves in next 3 months. OTHER SIGNIFICANT LABORATORY DATA: Creatinine 1.3. A1c 6.6, cholesterol is 149, LDL is 80, HDL is 60. TSH is 1.2. Chest x-ray negative. EKG normal sinus rhythm. FINAL DIAGNOSES: 1. Congestive heart failure, acute on chronic. 2. Severe left ventricular systolic failure, 25% EJF. 3. Normal coronaries on cardiac catheterization. 4. Hypertension. 5. Diabetes. MEDICATIONS: See [facility]AD for discharge medications. He will follow up in the office. FATOUMATA CARTER MD DR: MEGAN/nts JOB#: [id number] / [id number] MARISSA
== END 2017-01-14 16:10 | disposition home or self-care (01) | DRG 286 ==
LOC: ER 09:31 → 5 NORTH 10:29
PROVIDERS: ADMIT Internal Medicine; ATTEND Internal Medicine
PROC: 4A023N7 Measurement of Cardiac Sampling and Pressure, Left Heart, Percutaneous Approach (ICD-10-PCS; principal; 2017-01-13)
PROC: B2111ZZ Fluoroscopy of Multiple Coronary Arteries using Low Osmolar Contrast (ICD-10-PCS; 2017-01-13)
PROC: B2151ZZ Fluoroscopy of Left Heart using Low Osmolar Contrast (ICD-10-PCS; 2017-01-13)
DX: I13.0 Hypertensive heart and chronic kidney disease with heart failure and stage 1 through stage 4 chronic kidney disease, or unspecified chronic kidney disease (principal); I50.43 Acute on chronic combined systolic (congestive) and diastolic (congestive) heart failure; I42.9 Cardiomyopathy, unspecified; I16.0 Hypertensive urgency; E66.01 Morbid (severe) obesity due to excess calories; E11.9 Type 2 diabetes mellitus without complications; E78.5 Hyperlipidemia, unspecified; N40.0 Benign prostatic hyperplasia without lower urinary tract symptoms; N28.9 Disorder of kidney and ureter, unspecified; Z82.49 Family history of ischemic heart disease and other diseases of the circulatory system; Z88.8 Allergy status to other drugs, medicaments and biological substances; Z83.3 Family history of diabetes mellitus; Z91.19 Patient's noncompliance with other medical treatment and regimen; Z68.37 Body mass index [BMI] 37.0-37.9, adult; N18.1 Chronic kidney disease, stage 1
CPT/HCPCS: 36415; 71010; 80048; 80053; 80061; 81001; 82947; 83036; 83605; 83690; 83735; 83880; 84443; 84484; 85007; 85027; 93005; 93306; 93458; 94250; 94640; 94760; 96374; C1769; J1650; J1815; J1940; J2250; J3010; J3490; J7620; 99285-25